=== PATIENT | female | born 1965 | race Caucasian/White ===

== ENCOUNTER 2021-04-05 10:10 | Emergency (ER) | payer OTHER, SELFPAY ==
--- NOTE | ~2021-04-05 | XR_ITS ---
EXAMINATION: XR heel LT min 2V EXAM DATE: 04/05/2021 10:28 INDICATION: Left heel pain, history of plantar fasciitis. TECHNIQUE: Frontal, dorsal plantar projections left calcaneus. There are no prior studies for compar darling. FINDINGS: There are no acute fractures or dislocations identified. There is no subcutaneous gas. Th e soft tissue is unremarkable. There are no radiopaque foreign bodies. Tiny inferior calcaneal spu r. IMPRESSION: Tiny left calcaneal spur. Reviewed, dictated and finalized at location A. IMPRESSION: Tiny left calcaneal spur.
--- NOTE | 2021-04-05 10:13 | ED.LOWEXIN ---
HPI - Extremity Injury (Lower) General Chief Complaint: Extremity Injury, Lower Stated Complaint: Pain in left heel of Foot Time Seen by Provider: 04/05/21 10:13 Source: patient and RN notes reviewed History of Present Illness HPI Narrative: Patient is a 55-year-old female who presents the urgent care with complaints of severe pain in the left heel. Patient states that is now radiating to the foot considering she has been walking weird on the foot . Patient states that it started on Tuesday after working in the yard. Patient does have a history of plantar fasciitis. States that she is elevated the foot and taken Tylenol for the pain. Patient has also bought orthotics for her shoes and wore a heel brace without much relief. No other acute complaints. Patient aware of the plan of care. Some parts of this dictation were generated by voice recognition software and may contain typographical and/or grammatical inaccuracies. Related Data Home Medications Medication Instructions Recorded Confirmed alprazolam [Xanax] 0.5 mg PO BID 09/18/19 09/18/19 levothyroxine 25 mcg PO DAILY 09/18/19 09/18/19 Allergies Allergy/AdvReac Type Severity Reaction Status Date / Time benzonatate Allergy Itching Verified 09/18/19 12:02 [From Maria R Santana] Review of Systems Review of Systems: Narrative: CONSTITUTIONAL: Denies fever, chills, or sweats. EYES: Denies visual changes, redness, or discharge. ENT: Denies rhinorrhea, congestion, sore throat, or otalgia. CARDIOVASCULAR: Denies chest pain, palpitations, or edema. RESPIRATORY: Denies cough or dyspnea. GASTROINTESTINAL: Denies abdominal pain, nausea, vomiting, or diarrhea. GENITOURINARY: Denies dysuria or hematuria. SKIN: Denies rash or itching. MUSCULOSKELETAL: Reports of left heel pain radiating to the foot NEUROLOGIC: Denies headache, numbness, or weakness. All other systems reviewed are negative, except as documented in HPI. PMFSH Social History Social History Gender identity (if verbalized by the patient): Female Comments At the time of my signature, I reviewed and agree with the nursing past medical, surgical, social, and family history. There is no relevant family history pertinent to the patient complaint. Exam Narrative: Exam Narrative: GENERAL: This is a well-nourished, well-developed patient, in no apparent distress. HEAD: normocephalic, atraumatic. EYES: PERRL. Sclera clear/white. Vision is grossly intact. EARS: External ears normal NOSE: External nose normal with no obvious nasal discharge, nares without redness, no rhinorrhea. THROAT: Mucous membranes moist NECK: Neck supple CARDIOVASCULAR: Regular rate and rhythm without murmurs, gallops, or rubs. RESPIRATORY: Clear to auscultation. Breath sounds equal bilaterally. No wheezes, rales, or rhonchi. SKIN: warm, intact with no suspicious lesions or rash, good texture and turgor. NEURO: awake, alert, and oriented to person, place and time. There were no obvious focal neurologic abnormalities. EXTREMITIES: No edema, ecchymosis or notable deformity to the left heel/left lower extremity. Positive strong left pedal pulse with capillary refill less than 2 seconds. Moderate tenderness to the plantar region of the left heel. Course Vital Signs Vital signs: Vital Signs Temperature 98.5 F 04/05/21 10:17 Pulse Rate 87 04/05/21 10:17 Respiratory Rate 16 04/05/21 10:17 Blood Pressure 158/101 H 04/05/21 10:17 Pulse Oximetry 100 04/05/21 10:17 Temperature 98.5 F 04/05/21 10:17 Pulse Rate 87 04/05/21 10:17 Respiratory Rate 16 04/05/21 10:17 Blood Pressure 158/101 H 04/05/21 10:17 Pulse Oximetry 100 04/05/21 10:17 Reviewed-patient is informed that they may have pre-hypertension or hypertension based on a blood pressure reading in the department. I recommend the patient call the primary care provider listed on their discharge instructions or a physician of their choice this week to arrange
[2021-04-05 10:17] VITALS: BP 158/101; PULSE 87; RESP 16; TEMP 36.9; O2SAT 100
--- NOTE | 2021-04-05 10:30 | PC.NURSE ---
PT DECLINED ICE AND WHEELCHAIR
== END 2021-04-05 10:56 | disposition home or self-care (01) ==
PROVIDERS: Emergency Provider Nurse Practitioner Family; PCP Family Medicine
DX: M77.32 Calcaneal spur, left foot (principal); E03.9 Hypothyroidism, unspecified; F41.9 Anxiety disorder, unspecified
CPT/HCPCS: 73650; 99213; G0463

== ENCOUNTER 2024-10-18 18:37 | Emergency (ER) | payer OTHER, SELFPAY ==
--- NOTE | ~2024-10-18 | CT_ITS ---
EXAMINATION: CT brain wo con DATE: 10/18/2024 19:13 INDICATION: Headache . TECHNIQUE: Computed tomography (CT) of the head was performed without intravenous contrast. The mA wa s adjusted according to patient size. Iterative reconstruction technique was employed. The dose-lengt h product was 605.33 mGy-cm. COMPARISON: 11/25/2007. FINDINGS: No acute intracranial hemorrhage or extra-axial fluid collection. No hydrocephalus, mass, or herniation. No acute ischemic infarct. Unremarkable dural venous sinus attenuation. No acute osseous abnormality. The aerated spaces are clear. IMPRESSION: No acute intracranial process. Reviewed, dictated and finalized at location K. TAMALE MAN
[2024-10-18 18:43] VITALS: BP 169/99; PULSE 79; RESP 18; TEMP 36.9; O2SAT 100
[2024-10-18] MEDS: SODIUM CHLORIDE 0.9% IV 1,000 ML 999 ML IV CONT (19:29)
--- NOTE | 2024-10-18 19:35 | ED_ITS ---
HPI - Headache General Chief Complaint: Headache Stated Complaint: black eye, headache Time Seen by Provider: 10/18/24 18:41 Source: patient and family Mode of arrival: ambulatory Limitations: no limitations History of Present Illness HPI Narrative: this is a 59-year-old female that presents with some headache migraine type headache that is throbbing left-sided with some some neck pain with no neck stiffness no fever chills does have some blurry vision in the left eye and has concerned about a capillary that is in the left eye but otherwise has no neurological deficits history of anxiety. No fever chills no chest pain no shortness of breath no nausea vomiting. MD elicited complaint: headache and migraine Onset (ago): hour(s) Onset description: gradually Location: left, frontal and band-like Severity: moderate Pain scale (0-10): 8 Quality & Timing: throbbing Exacerbating factors: movement of head/neck, light and noise Related Data Home Medications ?Medication ?Instructions ?Recorded ?Confirmed ?Last Taken ?Type alprazolam 0.5 mg tablet (Xanax) 0.5 mg PO BID 09/18/19 04/05/21 Unknown History levothyroxine 25 mcg tablet 25 mcg PO DAILY 09/18/19 04/05/21 Unknown History Allergies Allergy/AdvReac Type Severity Reaction Status Date / Time lisinopril Allergy Intermediate Cough Verified 10/18/24 19:12 benzonatate (From Tessalon Allergy Itching Verified 10/18/24 19:12 Max) Review of Systems Review of Systems: All systems reviewed & are unremarkable except as noted in HPI and below PMFSH Past Medical History Medical History Hypothyroidism Social History Social History Gender identity (if verbalized by the patient): Female Exam Const: General: healthy appearing and no acute distress Nutritional Appearance: well nourished Orientation/consciousness: patient oriented x3 HENMT: Head: normal to inspection Eyes: Conjunctivae: conjunctivae normal Pupils: Equal, round and reactive pupils present EOM: EOMs intact bilaterally Neck: Neck: normal visual inspection, no lymphadenopathy and no meningeal signs Chest: Chest palpation & inspection: normal inspection of the chest Resp: Effort & Inspection: normal respiratory effort Auscultation: clear to auscultation bilaterally Cardio: Rate: regular rate Rhythm: regular rhythm GI: GI Palp: Yes Soft to palpation Auscultation: normal bowel sounds : General: Yes bladder normal to palpation Neuro: General: patient oriented x3, moves all extremities, no meningeal signs, no focal motor deficits and CN's II-XI intact bilaterally Cranial nerves: Yes Nystagmus not present Speech: normal speech Gait exam (Neuro): Normal gait present Extrem: General: normal to inspection and no clubbing, cyanosis or edema Course Course Emergency Course: CT scan performed shows no acute abnormalities patient received IM Toradol and after reassessment pain has improved patient refused taking Zofran. Vital Signs Vital signs: Vital Signs Temperature 36.9 C 10/18/24 18:43 Pulse Rate 79 10/18/24 18:43 Respiratory Rate 18 10/18/24 18:43 Blood Pressure 169/99 H 10/18/24 18:43 Pulse Oximetry 100 10/18/24 18:43 Oxygen Delivery Room Air 10/18/24 18:43 Temperature 36.9 C 10/18/24 18:43 Pulse Rate 79 10/18/24 18:43 Respiratory Rate 18 10/18/24 18:43 Blood Pressure 169/99 H 10/18/24 18:43 Pulse Oximetry 100 10/18/24 18:43 Oxygen Delivery Room Air 10/18/24 18:43 Critical Care Time Critical Care Time Critical Care Time: No Discharge Plan Discharge Clinical Impression: Headache Qualifiers: Headache type: unspecified Headache chronicity pattern: unspecified pattern Intractability: not intractable Qualified Code(s): R51.9 - Headache, unspecified Migraine Qualifiers: Migraine type: unspecified Status migrainosus presence: without status migrainosus Intractability: not intractable Qualified Code(s): G43.909 - Migraine, unspecified, not intractable, without status migrainosus Patient Disposition: Home, Self-Care Condition: Stable Instructions: Antibiotic Form, Acute Headache (ED) Additional Instructions: Take medication as prescribed and follow up with primary if symptoms persist or worsen. Patient Language: Montenegrin Prescriptions: New tramadol 50 mg tablet 50 mg PO Q6H PRN (Reason: pain) Qty: 20 0RF No Action levothyroxine 25 mcg Tablet 25 mcg PO DAILY alprazolam [Xanax] 0.5 mg Tablet 0.5 mg PO BID Follow-up/Referrals: Lon,Seth Wu MD [Primary Care Provider] - Time of Disposition: 19:42
--- NOTE | 2024-10-18 20:30 | PC.NURSE ---
ERP aware of vitals. No new orders. Instructed pt to follow up with PCP.
[2024-10-18 20:50] VITALS: BP 162/96; PULSE 70; RESP 16; O2SAT 97
== END 2024-10-18 20:30 | disposition home or self-care (01) ==
PROVIDERS: Emergency Provider Emergency Medicine; PCP Family Medicine
DX: G43.909 Migraine, unspecified, not intractable, without status migrainosus (principal); E03.9 Hypothyroidism, unspecified
CPT/HCPCS: 70450; 96360; 99284; J7030